=== PATIENT | female | born 1995 | race Two or more races ===

== ENCOUNTER 2022-07-12 16:13 | Inpatient (IN) | payer MEDICAID ==
[~2022-07-12] VITALS: Ht 157.5 cm; Wt 60.8 kg
[2022-07-12 17:14] LABS: BASOPHILS % (AUTO) 0.6 % (0.0-2.0); EOSINOPHILS % (AUTO) 0.3 % (1.0-6.0); HEMATOCRIT 37.3 % (36-46); HEMOGLOBIN 12.6 g/dL (12.0-16.0); LYMPHOCYTES # (AUTO) 1.5 K/uL (1.0-4.8); LYMPHOCYTES % (AUTO) 23.9 % (22.0-44.0); MEAN CORPUSCULAR HEMOGLOBIN 30.1 pg (26.0-34.0); MEAN CORPUSCULAR HGB CONC 33.8 G/dL (31.0-37.0); MEAN CORPUSCULAR VOLUME 89 fL (80-100); MONOCYTES # (AUTO) 0.4 K/uL (0.1-1.0); MONOCYTES % (AUTO) 6.5 % (2.0-9.0); NEUTROPHILS # (AUTO) 4.4 K/uL (1.8-7.7); NEUTROPHILS % (AUTO) 68.7 % (40.0-70.0); PLATELET COUNT (AUTO) 505 K/uL (150-450); RED BLOOD CELL COUNT(AUTO) 4.19 MIL/uL (4.00-5.20); RED CELL DISTRIBUTION WIDTH 16.6 % (11.5-14.5)
[2022-07-12 17:32] LABS: ALANINE AMINOTRANSFERASE 39 U/L (12-78); ALBUMIN 3.6 g/dL (3.4-5.0); ALKALINE PHOSPHATASE 78 U/L (46-116); ANION GAP 14 mmol/L (8-16); ASPARTATE AMINOTRANSFERASE 60 U/L (15-37); BILIRUBIN,TOTAL 0.4 mg/dL (0.1-1.0); CARBON DIOXIDE 24 mmol/L (22-29); CHLORIDE 104 mmol/L (98-107); CREATININE 0.65 mg/dL (0.60-1.30); GLOMERULAR FILTR. RATE CALC > 60 mL/min (>60); GLUCOSE,RANDOM 100 mg/dL (70-110); HCG,QUANTITATIVE < 1 mIU/mL (0-6); POTASSIUM 3.2 mmol/L (3.5-5.1); SODIUM SERUM 142 mmol/L (136-145); TOTAL PROTEIN, SERUM 7.8 g/dL (6.4-8.2); UREA NITROGEN, BLOOD 6 mg/dL (7-18)
[2022-07-12 18:05] LABS: COVID AG,FIA SOURCE NASOPHARYNGEAL
[2022-07-12] MEDS ORDERED: PERTUSS(ACELL),DIPH,TET VAC/PF 0.5 ML SYRINGE IM. ONE (19:30)
[2022-07-12] MEDS ORDERED: POTASSIUM CHLORIDE 20 MEQ ER TABLET PO ONE (21:45)
[2022-07-12] MEDS ORDERED: LORazepam 1 MG TABLET PO ONE (22:00)
[2022-07-13 00:25] LABS: APPEARANCE,URINE HAZY (CLEAR); BILIRUBIN,URINE NEGATIVE (NEGATIVE); GLUCOSE, URINE (UA) TRACE mg/dL (NEGATIVE); KETONES,URINE NEGATIVE (NEGATIVE); LEUKOCYTE ESTERASE ,URINE NEGATIVE (NEGATIVE); NITRATE,URINE NEGATIVE (NEGATIVE); OCCULT BLOOD,URINE LARGE (NEGATIVE); PH,URINE 5.5 (5.0-8.0); PROTEIN,URINE 30-70 mg/dL (NEGATIVE); SPECIFIC GRAVITIY, URINE 1.027 (1.003-1.030); UROBILINOGEN,URINE <=1.0 mg/dL (<=1.0)
[2022-07-13 00:32] LABS: AMPHET/METH SCREEN,URINE NEGATIVE (NEGATIVE); BARBITURATE SCREEN, URINE NEGATIVE (NEGATIVE); BENZODIAZEPINES SCREEN,URINE NEGATIVE (NEGATIVE); CANNABINOID SCREEN,URINE POSITIVE (NEGATIVE); COCAINE SCREEN,URINE NEGATIVE (NEGATIVE); METHADONE SCREEN, URINE NEGATIVE (NEGATIVE); OPIATE SCREEN,URINE NEGATIVE (NEGATIVE)
[2022-07-13 00:36] LABS: BACTERIA,URINE Few /HPF (None Seen); SQUAMOUS EPITHELIAL CELL,UR Moderate /LPF (None Seen); WBC,URINE 0-2 /HPF (0-5)
[2022-07-13 00:48] LABS: PHENCYCLIDINE SCREEN,URINE NEGATIVE (NEGATIVE)
[2022-07-13] MEDS ORDERED: HALOPERIDOL 5 MG TABLET PO PRN (01:30)
[2022-07-13 10:51] VITALS: BP 136/98
[2022-07-13] MEDS: LORazepam 2 MG TABLET PO PRN (12:00)
[2022-07-13] MEDS ORDERED: GuaiFENesin/D-METHORPHAN [SUGAR-FREE] 200-20MG/10 ML SYRUP UDCUP PO PRN (16:15)
[2022-07-13] MEDS ORDERED: IBUPROFEN 400 MG TABLET PO PRN (16:15)
[2022-07-13] MEDS ORDERED: NICOTINE 14 MG/24 HOUR PATCH TD PRN (16:15)
[2022-07-13] MEDS ORDERED: MAGNESIUM HYDROXIDE SUSPENSION 30 ML UDCUP PO PRN (16:15)
[2022-07-13] MEDS ORDERED: DOCUSATE SODIUM 100 MG CAPSULE PO PRN (16:15)
[2022-07-13] MEDS ORDERED: ONDANSETRON HCL 4 MG TABLET PO PRN (16:15)
[2022-07-13] MEDS ORDERED: MAG HYDROX/AL HYDROX/SIMETH ES 30 ML SUSPENSION UDCUP PO PRN (16:15)
[2022-07-13] MEDS ORDERED: ALBUTEROL SULFATE HFA 90 MCG/PUFF 8 GM INHALER IH PRN (16:15)
[2022-07-13] MEDS ORDERED: PETROLATUM,WHITE 28 GM JELLY TP PRN (16:15)
[2022-07-13] MEDS ORDERED: LOPERAMIDE HCL 2 MG CAPSULE PO PRN (16:15)
[2022-07-13] MEDS ORDERED: ACETAMINOPHEN 325 MG TABLET PO PRN (16:15)
[2022-07-13] MEDS ORDERED: CloNIDine HCL 0.1 MG TABLET PO PRN (16:15)
[2022-07-13 20:25] VITALS: BP 138/89
[2022-07-13] MEDS: ZOLPIDEM TARTRATE 10 MG TABLET PO PRN (20:31)
[2022-07-14] MEDS: LORazepam 2 MG TABLET PO PRN ×3 (08:38→16:31)
[2022-07-14 08:39] VITALS: BP 137/99
[2022-07-14] MEDS ORDERED: HydrOXYzine PAMOATE 25 MG CAPSULE PO PRN (10:00)
[2022-07-14] MEDS ORDERED: CYANOCOBALAMIN 1,000 MCG/ML VIAL IM ONE (10:00)
[2022-07-14] MEDS: THIAMINE 100 MG TABLET PO SCH ×2 (10:20→16:30)
[2022-07-14] MEDS: SERTRALINE HCL 50 MG TABLET PO SCH (10:20)
[2022-07-14] MEDS: FOLIC ACID 1 MG TABLET PO SCH (10:20)
[2022-07-14] MEDS: MULTIVITAMINS WITH MINERALS, THERAPEUTIC TABLET PO SCH (10:21)
[2022-07-14 11:16] VITALS: BP 112/62
[2022-07-14 12:55] VITALS: BP 132/92
[2022-07-14] MEDS: ZOLPIDEM TARTRATE 10 MG TABLET PO PRN (20:32)
[2022-07-14 20:40] VITALS: BP 144/93
[2022-07-14 21:00] VITALS: BP 144/93
[2022-07-15 04:29] VITALS: BP 140/91
[2022-07-15] MEDS: LORazepam 2 MG TABLET PO PRN (04:44)
[2022-07-15 05:04] VITALS: BP 140/91
[2022-07-15] MEDS ORDERED: LORazepam 2 MG TABLET PO PRN (07:00)
[2022-07-15 07:41] LABS: ANION GAP 6 mmol/L (8-16); CALCIUM, TOTAL 9.2 mg/dL (8.8-10.5); CARBON DIOXIDE 29 mmol/L (22-29); CHLORIDE 100 mmol/L (98-107); CHOLESTEROL 248 mg/dL (131-200); CREATININE 0.63 mg/dL (0.60-1.30); GLUCOSE,RANDOM 83 mg/dL (70-110); HDL CHOLESTEROL 127 mg/dL (40-60); LDL CHOL (CALC.) 107 mg/dL (0-130); POTASSIUM 3.5 mmol/L (3.5-5.1); SODIUM SERUM 135 mmol/L (136-145); THYROID STIMULATING HORMONE 1.49 uIU/mL (0.36-3.74); TRIGLYCERIDES 68 mg/dL (15-150); UREA NITROGEN, BLOOD 11 mg/dL (7-18)
[2022-07-15 07:43] LABS: GLOMERULAR FILTR. RATE CALC > 60 mL/min (>60)
[2022-07-15 08:19] VITALS: BP 137/76
[2022-07-15] MEDS: FOLIC ACID 1 MG TABLET PO SCH (08:45)
[2022-07-15] MEDS: THIAMINE 100 MG TABLET PO SCH ×2 (08:45→17:08)
[2022-07-15] MEDS: SERTRALINE HCL 50 MG TABLET PO SCH (08:45)
[2022-07-15] MEDS: LORazepam 2 MG TABLET PO SCH ×4 (08:45→20:09)
[2022-07-15] MEDS: MULTIVITAMINS WITH MINERALS, THERAPEUTIC TABLET PO SCH (08:45)
[2022-07-15 10:18] VITALS: BP 137/76
[2022-07-15 20:23] VITALS: BP 113/76
[2022-07-16] MEDS: LORazepam 2 MG TABLET PO SCH (08:02)
[2022-07-16] MEDS: MULTIVITAMINS WITH MINERALS, THERAPEUTIC TABLET PO SCH (08:02)
[2022-07-16] MEDS: FOLIC ACID 1 MG TABLET PO SCH (08:02)
[2022-07-16] MEDS: THIAMINE 100 MG TABLET PO SCH (08:02)
[2022-07-16] MEDS: SERTRALINE HCL 50 MG TABLET PO SCH (08:02)
[2022-07-16 08:31] VITALS: BP 122/84
[2022-07-16] MEDS ORDERED: SERT-439 PO (09:54)
[2022-07-16 10:13] VITALS: BP 122/84
[2022-07-17] MEDS ORDERED: LORazepam 1 MG TABLET PO PRN (07:00)
[2022-07-17] MEDS ORDERED: LORazepam 1 MG TABLET PO SCH (09:00)
[2022-07-18] MEDS ORDERED: LORazepam 1 MG TABLET PO PRN (07:00)
== END 2022-07-16 12:01 | disposition home or self-care (01) | DRG 751 ==
LOC: EMS 16:13 → B2S 07-13 09:02
PROVIDERS: ADMIT Psychiatry & Neurology Child & Adolescent Psychiatry; ATTEND Psychiatry & Neurology Child & Adolescent Psychiatry
DX: F33.2 Major depressive disorder, recurrent severe without psychotic features (principal); D75.839 Thrombocytosis, unspecified; Z20.822 Contact with and (suspected) exposure to COVID-19; E87.6 Hypokalemia; F10.10 Alcohol abuse, uncomplicated; F41.9 Anxiety disorder, unspecified; Y90.8 Blood alcohol level of 240 mg/100 ml or more; F19.10 Other psychoactive substance abuse, uncomplicated; F99 Mental disorder, not otherwise specified; Z71.41 Alcohol abuse counseling and surveillance of alcoholic; Z98.891 History of uterine scar from previous surgery
CPT/HCPCS: 80048; 80053; 80061; 81001; 84439; 84443; 84702; 85025; 90715; 99285; G0480; J3420

== ENCOUNTER 2022-07-17 19:17 | Inpatient (IN) | payer MEDICAID ==
[~2022-07-17] VITALS: Ht 160 cm; Wt 60.0 kg
[~2022-07-17 19:17] MED LIST: SERT-439 PO
[2022-07-17] MEDS ORDERED: HALOPERIDOL LACTATE 5 MG/ML VIAL IM ONE (19:45)
[2022-07-17] MEDS ORDERED: DIAZEPAM 5 MG/ML 2 ML SYRINGE IM ONE (19:45)
[2022-07-17] MEDS ORDERED: DiphenhydrAMINE HCL 50 MG/ML VIAL IM ONE (19:45)
[2022-07-17 20:28] LABS: AMPHET/METH SCREEN,URINE NEGATIVE (NEGATIVE); BARBITURATE SCREEN, URINE NEGATIVE (NEGATIVE); BENZODIAZEPINES SCREEN,URINE NEGATIVE (NEGATIVE); CANNABINOID SCREEN,URINE NEGATIVE (NEGATIVE); COCAINE SCREEN,URINE NEGATIVE (NEGATIVE); METHADONE SCREEN, URINE NEGATIVE (NEGATIVE); OPIATE SCREEN,URINE NEGATIVE (NEGATIVE); PHENCYCLIDINE SCREEN,URINE NEGATIVE (NEGATIVE)
[2022-07-17 20:40] LABS: COVID AG,FIA SOURCE NASOPHARYNGEAL
[2022-07-17 20:43] LABS: BASOPHILS % (AUTO) 0.7 % (0.0-2.0); EOSINOPHILS % (AUTO) 0.4 % (1.0-6.0); HEMATOCRIT 36.9 % (36-46); HEMOGLOBIN 12.2 g/dL (12.0-16.0); LYMPHOCYTES # (AUTO) 1.9 K/uL (1.0-4.8); LYMPHOCYTES % (AUTO) 25.2 % (22.0-44.0); MEAN CORPUSCULAR HGB CONC 32.9 G/dL (31.0-37.0); MEAN CORPUSCULAR VOLUME 91 fL (80-100); MONOCYTES # (AUTO) 0.6 K/uL (0.1-1.0); MONOCYTES % (AUTO) 7.5 % (2.0-9.0); NEUTROPHILS # (AUTO) 5.1 K/uL (1.8-7.7); NEUTROPHILS % (AUTO) 66.2 % (40.0-70.0); PLATELET COUNT (AUTO) 391 K/uL (150-450); RED BLOOD CELL COUNT(AUTO) 4.05 MIL/uL (4.00-5.20); RED CELL DISTRIBUTION WIDTH 17.5 % (11.5-14.5)
[2022-07-17 21:01] LABS: ALANINE AMINOTRANSFERASE 48 U/L (12-78); ALBUMIN 3.9 g/dL (3.4-5.0); ALKALINE PHOSPHATASE 76 U/L (46-116); ANION GAP 9 mmol/L (8-16); ASPARTATE AMINOTRANSFERASE 71 U/L (15-37); BILIRUBIN,TOTAL 0.2 mg/dL (0.1-1.0); CALCIUM, TOTAL 8.7 mg/dL (8.8-10.5); CARBON DIOXIDE 27 mmol/L (22-29); CHLORIDE 100 mmol/L (98-107); CREATININE 0.62 mg/dL (0.60-1.30); GLUCOSE,RANDOM 95 mg/dL (70-110); SODIUM SERUM 136 mmol/L (136-145); TOTAL PROTEIN, SERUM 7.8 g/dL (6.4-8.2); UREA NITROGEN, BLOOD 7 mg/dL (7-18)
[2022-07-17 21:02] LABS: GLOMERULAR FILTR. RATE CALC > 60 mL/min (>60)
[2022-07-17 21:03] LABS: POTASSIUM 2.9 mmol/L (3.5-5.1)
[2022-07-17] MEDS ORDERED: ZOLPIDEM TARTRATE 10 MG TABLET PO PRN (21:15)
[2022-07-17] MEDS ORDERED: HALOPERIDOL 5 MG TABLET PO PRN (21:15)
[2022-07-17] MEDS ORDERED: POTASSIUM CHLORIDE 20 MEQ ER TABLET PO ONE (21:15)
[2022-07-17 21:19] LABS: APPEARANCE,URINE CLEAR (CLEAR); BILIRUBIN,URINE NEGATIVE (NEGATIVE); GLUCOSE, URINE (UA) NEGATIVE (NEGATIVE); KETONES,URINE NEGATIVE (NEGATIVE); LEUKOCYTE ESTERASE ,URINE NEGATIVE (NEGATIVE); NITRATE,URINE NEGATIVE (NEGATIVE); OCCULT BLOOD,URINE NEGATIVE (NEGATIVE); PROTEIN,URINE NEGATIVE (NEGATIVE); SPECIFIC GRAVITIY, URINE 1.006 (1.003-1.030); UROBILINOGEN,URINE <=1.0 mg/dL (<=1.0)
[2022-07-18] MEDS: LORazepam 2 MG TABLET PO PRN ×2 (12:14→20:33)
[2022-07-18 16:24] VITALS: BP 116/84
[2022-07-18 16:27] VITALS: BP 116/84
[2022-07-18 20:22] VITALS: BP 116/73
[2022-07-18 20:33] VITALS: BP 114/65
[2022-07-19] MEDS ORDERED: NICOTINE 14 MG/24 HOUR PATCH TD PRN (06:00)
[2022-07-19] MEDS ORDERED: ALBUTEROL SULFATE HFA 90 MCG/PUFF 8 GM INHALER IH PRN (06:00)
[2022-07-19] MEDS ORDERED: MAGNESIUM HYDROXIDE SUSPENSION 30 ML UDCUP PO PRN (06:00)
[2022-07-19] MEDS ORDERED: MAG HYDROX/AL HYDROX/SIMETH ES 30 ML SUSPENSION UDCUP PO PRN (06:00)
[2022-07-19] MEDS ORDERED: IBUPROFEN 400 MG TABLET PO PRN (06:00)
[2022-07-19] MEDS ORDERED: ONDANSETRON HCL 4 MG TABLET PO PRN (06:00)
[2022-07-19] MEDS ORDERED: DOCUSATE SODIUM 100 MG CAPSULE PO PRN (06:00)
[2022-07-19] MEDS ORDERED: CloNIDine HCL 0.1 MG TABLET PO PRN (06:00)
[2022-07-19] MEDS ORDERED: PETROLATUM,WHITE 28 GM JELLY TP PRN (06:00)
[2022-07-19] MEDS ORDERED: ACETAMINOPHEN 325 MG TABLET PO PRN (06:00)
[2022-07-19] MEDS ORDERED: GuaiFENesin/D-METHORPHAN [SUGAR-FREE] 200-20MG/10 ML SYRUP UDCUP PO PRN (06:00)
[2022-07-19] MEDS ORDERED: LOPERAMIDE HCL 2 MG CAPSULE PO PRN (06:00)
[2022-07-19] MEDS: LORazepam 2 MG TABLET PO PRN ×2 (07:50→20:21)
[2022-07-19 08:03] VITALS: BP 134/96
[2022-07-19 08:27] LABS: ANION GAP 5 mmol/L (8-16); CALCIUM, TOTAL 9.7 mg/dL (8.8-10.5); CARBON DIOXIDE 31 mmol/L (22-29); CHLORIDE 101 mmol/L (98-107); CREATININE 0.71 mg/dL (0.60-1.30); GLUCOSE,RANDOM 81 mg/dL (70-110); POTASSIUM 3.8 mmol/L (3.5-5.1); SODIUM SERUM 137 mmol/L (136-145); UREA NITROGEN, BLOOD 14 mg/dL (7-18)
[2022-07-19 08:34] LABS: GLOMERULAR FILTR. RATE CALC > 60 mL/min (>60)
[2022-07-19] MEDS ORDERED: SERTRALINE HCL 50 MG TABLET PO SCH (11:45)
[2022-07-19 20:24] VITALS: BP 130/91
[2022-07-20] MEDS: LORazepam 2 MG TABLET PO PRN ×2 (07:06→14:55)
[2022-07-20 07:31] VITALS: BP 113/78
[2022-07-20 08:22] VITALS: BP 119/74
[2022-07-20] MEDS ORDERED: SERTRALINE HCL 50 MG TABLET PO SCH (09:00)
[2022-07-20] MEDS ORDERED: SERT-439 PO (13:01)
[2022-07-20 15:58] VITALS: BP 116/61
[2022-07-20 16:04] VITALS: BP 116/81
== END 2022-07-20 19:19 | disposition home or self-care (01) | DRG 751 ==
LOC: EMS 19:18 → B3A 07-18 12:54
PROVIDERS: ADMIT Psychiatry & Neurology Psychiatry; ATTEND Psychiatry & Neurology Psychiatry
DX: F33.2 Major depressive disorder, recurrent severe without psychotic features (principal); R45.851 Suicidal ideations; E87.6 Hypokalemia; Z20.822 Contact with and (suspected) exposure to COVID-19; F10.10 Alcohol abuse, uncomplicated; G47.00 Insomnia, unspecified; F99 Mental disorder, not otherwise specified; Y90.8 Blood alcohol level of 240 mg/100 ml or more; Z78.1 Physical restraint status
CPT/HCPCS: 80048; 80053; 81003; 83036; 85025; 87081; 99291; G0480; J1200; J1630

== ENCOUNTER 2022-07-25 15:44 | Inpatient (IN) | payer MEDICAID ==
[~2022-07-25] VITALS: Ht 160 cm; Wt 132.1 kg
[2022-07-25] MEDS ORDERED: LORazepam 2 MG/ML VIAL IM ONE (16:45)
[2022-07-25] MEDS ORDERED: QUEtiapine FUMARATE 100 MG TABLET PO PRN (17:30)
[2022-07-25] MEDS ORDERED: ZOLPIDEM TARTRATE 10 MG TABLET PO PRN (17:30)
[2022-07-25 17:34] LABS: BASOPHILS % (AUTO) 0.4 % (0.0-2.0); EOSINOPHILS % (AUTO) 1.6 % (1.0-6.0); HEMATOCRIT 38.4 % (36-46); HEMOGLOBIN 12.5 g/dL (12.0-16.0); LYMPHOCYTES # (AUTO) 1.8 K/uL (1.0-4.8); LYMPHOCYTES % (AUTO) 16.5 % (22.0-44.0); MEAN CORPUSCULAR HEMOGLOBIN 29.2 pg (26.0-34.0); MEAN CORPUSCULAR HGB CONC 32.5 G/dL (31.0-37.0); MEAN CORPUSCULAR VOLUME 90 fL (80-100); MONOCYTES # (AUTO) 0.4 K/uL (0.1-1.0); NEUTROPHILS # (AUTO) 8.6 K/uL (1.8-7.7); NEUTROPHILS % (AUTO) 77.5 % (40.0-70.0); PLATELET COUNT (AUTO) 343 K/uL (150-450); RED BLOOD CELL COUNT(AUTO) 4.27 MIL/uL (4.00-5.20); RED CELL DISTRIBUTION WIDTH 17.1 % (11.5-14.5)
[2022-07-25 17:44] LABS: ANION GAP 14 mmol/L (8-16); CALCIUM, TOTAL 8.5 mg/dL (8.8-10.5); CARBON DIOXIDE 25 mmol/L (22-29); CHLORIDE 105 mmol/L (98-107); CREATININE 0.77 mg/dL (0.60-1.30); GLOMERULAR FILTR. RATE CALC > 60 mL/min (>60); GLUCOSE,RANDOM 99 mg/dL (70-110); SODIUM SERUM 144 mmol/L (136-145); UREA NITROGEN, BLOOD 12 mg/dL (7-18)
[2022-07-25 17:50] LABS: ALANINE AMINOTRANSFERASE 99 U/L (12-78); ALBUMIN 3.7 g/dL (3.4-5.0); ALKALINE PHOSPHATASE 84 U/L (46-116); ASPARTATE AMINOTRANSFERASE 120 U/L (15-37); BILIRUBIN,TOTAL 0.2 mg/dL (0.1-1.0); TOTAL PROTEIN, SERUM 7.6 g/dL (6.4-8.2)
[2022-07-25] MEDS ORDERED: POTASSIUM CHLORIDE 10% 40 MEQ/30 ML LIQUID UDCUP PO ONE (18:15)
[2022-07-25 19:08] LABS: COVID AG,FIA SOURCE NASOPHARYNGEAL
[2022-07-26] VITALS (12 sets, daily range): BP systolic 115–141; BP diastolic 72–93
[2022-07-26] MEDS: LORazepam 2 MG TABLET PO PRN ×3 (00:04→20:35)
[2022-07-26] MEDS ORDERED: ACETAMINOPHEN 325 MG TABLET PO PRN ×2 (04:00→06:45)
[2022-07-26] MEDS ORDERED: ALBUTEROL SULFATE HFA 90 MCG/PUFF 8 GM INHALER IH PRN (06:45)
[2022-07-26] MEDS ORDERED: MAG HYDROX/AL HYDROX/SIMETH ES 30 ML SUSPENSION UDCUP PO PRN (06:45)
[2022-07-26] MEDS ORDERED: CloNIDine HCL 0.1 MG TABLET PO PRN (06:45)
[2022-07-26] MEDS ORDERED: MAGNESIUM HYDROXIDE SUSPENSION 30 ML UDCUP PO PRN (06:45)
[2022-07-26] MEDS ORDERED: GuaiFENesin/D-METHORPHAN [SUGAR-FREE] 200-20MG/10 ML SYRUP UDCUP PO PRN (06:45)
[2022-07-26] MEDS ORDERED: DOCUSATE SODIUM 100 MG CAPSULE PO PRN (06:45)
[2022-07-26] MEDS ORDERED: LOPERAMIDE HCL 2 MG CAPSULE PO PRN (06:45)
[2022-07-26] MEDS ORDERED: NICOTINE 14 MG/24 HOUR PATCH TD PRN (06:45)
[2022-07-26] MEDS ORDERED: PETROLATUM,WHITE 28 GM JELLY TP PRN (06:45)
[2022-07-26] MEDS ORDERED: IBUPROFEN 400 MG TABLET PO PRN (06:45)
[2022-07-26] MEDS: ONDANSETRON HCL 4 MG TABLET PO PRN (07:13)
[2022-07-26] MEDS: SERTRALINE HCL 50 MG TABLET PO SCH (18:08)
[2022-07-27] MEDS: ONDANSETRON HCL 4 MG TABLET PO PRN (06:25)
[2022-07-27 06:30] VITALS: BP 164/113
[2022-07-27] MEDS: LORazepam 2 MG TABLET PO PRN (07:10)
[2022-07-27 07:14] VITALS: BP 136/95
[2022-07-27] MEDS: SERTRALINE HCL 50 MG TABLET PO SCH ×2 (08:12→16:03)
[2022-07-27 08:22] VITALS: BP 119/76
[2022-07-27 20:34] VITALS: BP 123/75
[2022-07-28 08:30] VITALS: BP 128/85
[2022-07-28] MEDS: SERTRALINE HCL 50 MG TABLET PO SCH (09:06)
[2022-07-28] MEDS ORDERED: SERT-439 PO (11:59)
[2022-07-29 07:17] LABS: BASOPHILS % (AUTO) 0.3 % (0.0-2.0); EOSINOPHILS % (AUTO) 1.9 % (1.0-6.0); HEMATOCRIT 35.3 % (36-46); HEMOGLOBIN 11.6 g/dL (12.0-16.0); LYMPHOCYTES # (AUTO) 2.6 K/uL (1.0-4.8); LYMPHOCYTES % (AUTO) 37.3 % (22.0-44.0); MEAN CORPUSCULAR HEMOGLOBIN 29.7 pg (26.0-34.0); MEAN CORPUSCULAR HGB CONC 32.9 G/dL (31.0-37.0); MEAN CORPUSCULAR VOLUME 90 fL (80-100); MONOCYTES # (AUTO) 0.5 K/uL (0.1-1.0); MONOCYTES % (AUTO) 7.7 % (2.0-9.0); NEUTROPHILS # (AUTO) 3.7 K/uL (1.8-7.7); NEUTROPHILS % (AUTO) 52.8 % (40.0-70.0); PLATELET COUNT (AUTO) 299 K/uL (150-450); RED BLOOD CELL COUNT(AUTO) 3.92 MIL/uL (4.00-5.20); RED CELL DISTRIBUTION WIDTH 16.9 % (11.5-14.5)
== END 2022-07-28 14:10 | disposition home or self-care (01) | DRG 754 ==
LOC: EMS 15:46 → B3A 21:17
PROVIDERS: ADMIT Psychiatry & Neurology Child & Adolescent Psychiatry; ATTEND Psychiatry & Neurology Child & Adolescent Psychiatry
DX: F32.9 Major depressive disorder, single episode, unspecified (principal); D72.829 Elevated white blood cell count, unspecified; F10.129 Alcohol abuse with intoxication, unspecified; E87.6 Hypokalemia; F32.A Depression, unspecified; Y90.9 Presence of alcohol in blood, level not specified; Z20.822 Contact with and (suspected) exposure to COVID-19; F41.9 Anxiety disorder, unspecified; R03.0 Elevated blood-pressure reading, without diagnosis of hypertension; Z78.1 Physical restraint status; Z98.891 History of uterine scar from previous surgery
CPT/HCPCS: 80053; 84132; 84703; 85025; 87081; 99285; 99291; G0480; J2060; Q0162

== ENCOUNTER 2022-07-28 23:15 | Inpatient (IN) | payer MEDICAID ==
[~2022-07-28] VITALS: Ht 160 cm; Wt 132.1 kg
[2022-07-29] MEDS ORDERED: HALOPERIDOL 5 MG TABLET PO PRN (00:30)
[2022-07-29] MEDS ORDERED: SODIUM CHLORIDE 0.9% 1,000 ML IV ONE (00:45)
[2022-07-29] MEDS ORDERED: LORazepam 2 MG/ML VIAL IVP ONE (00:45)
[2022-07-29] MEDS ORDERED: DiphenhydrAMINE HCL 50 MG/ML VIAL IVP ONE (00:45)
[2022-07-29 00:46] LABS: BASOPHILS % (AUTO) 0.5 % (0.0-2.0); EOSINOPHILS % (AUTO) 0.8 % (1.0-6.0); HEMATOCRIT 38.4 % (36-46); HEMOGLOBIN 12.8 g/dL (12.0-16.0); LYMPHOCYTES # (AUTO) 1.6 K/uL (1.0-4.8); LYMPHOCYTES % (AUTO) 22.3 % (22.0-44.0); MEAN CORPUSCULAR HEMOGLOBIN 29.5 pg (26.0-34.0); MEAN CORPUSCULAR HGB CONC 33.2 G/dL (31.0-37.0); MEAN CORPUSCULAR VOLUME 89 fL (80-100); MONOCYTES # (AUTO) 0.5 K/uL (0.1-1.0); MONOCYTES % (AUTO) 6.5 % (2.0-9.0); NEUTROPHILS # (AUTO) 5.1 K/uL (1.8-7.7); NEUTROPHILS % (AUTO) 69.9 % (40.0-70.0); PLATELET COUNT (AUTO) 317 K/uL (150-450); RED BLOOD CELL COUNT(AUTO) 4.33 MIL/uL (4.00-5.20); RED CELL DISTRIBUTION WIDTH 16.6 % (11.5-14.5)
[2022-07-29 00:50] LABS: COVID AG,FIA SOURCE NASOPHARYNGEAL
[2022-07-29 00:55] LABS: ANION GAP 15 mmol/L (8-16); CALCIUM, TOTAL 8.8 mg/dL (8.8-10.5); CARBON DIOXIDE 26 mmol/L (22-29); CHLORIDE 100 mmol/L (98-107); CREATININE 0.71 mg/dL (0.60-1.30); GLUCOSE,RANDOM 96 mg/dL (70-110); POTASSIUM 3.6 mmol/L (3.5-5.1); SODIUM SERUM 141 mmol/L (136-145); UREA NITROGEN, BLOOD 5 mg/dL (7-18)
[2022-07-29 00:57] LABS: GLOMERULAR FILTR. RATE CALC > 60 mL/min (>60)
[2022-07-29 01:09] LABS: ALANINE AMINOTRANSFERASE 57 U/L (12-78); ALBUMIN 3.9 g/dL (3.4-5.0); ALKALINE PHOSPHATASE 95 U/L (46-116); ASPARTATE AMINOTRANSFERASE 39 U/L (15-37); BILIRUBIN,TOTAL 0.2 mg/dL (0.1-1.0); HCG,QUANTITATIVE < 1 mIU/mL (0-6)
[2022-07-29 03:20] VITALS: BP 84/46
[2022-07-29 04:20] VITALS: BP 92/54
[2022-07-29 05:24] VITALS: BP 104/56
[2022-07-29 06:20] VITALS: BP 100/54
[2022-07-29 08:40] VITALS: BP 110/75
[2022-07-29] MEDS: SERTRALINE HCL 50 MG TABLET PO SCH (11:28)
[2022-07-29 23:30] VITALS: BP 122/72
[2022-07-29] MEDS: ZOLPIDEM TARTRATE 10 MG TABLET PO PRN (23:55)
[2022-07-30 04:00] VITALS: BP 115/72
[2022-07-30 04:22] VITALS: BP 115/72
[2022-07-30] MEDS: LORazepam 1 MG TABLET PO PRN ×2 (06:19→21:29)
[2022-07-30] MEDS: SERTRALINE HCL 50 MG TABLET PO SCH (08:10)
[2022-07-30 08:18] VITALS: BP 109/68
[2022-07-30 08:53] VITALS: BP 109/68
[2022-07-30 20:28] VITALS: BP 121/82
[2022-07-30 21:05] VITALS: BP 121/82
[2022-07-30] MEDS: ZOLPIDEM TARTRATE 10 MG TABLET PO PRN (21:29)
[2022-07-31] MEDS: LORazepam 1 MG TABLET PO PRN ×3 (07:08→21:16)
[2022-07-31 08:30] VITALS: BP 122/74
[2022-07-31] MEDS: SERTRALINE HCL 50 MG TABLET PO SCH (09:05)
[2022-07-31 14:21] VITALS: BP 122/74
[2022-07-31] MEDS: ZOLPIDEM TARTRATE 10 MG TABLET PO PRN (21:16)
[2022-07-31 21:33] VITALS: BP 121/72
[2022-08-01 04:32] VITALS: BP 122/82
[2022-08-01] MEDS: LORazepam 1 MG TABLET PO PRN ×2 (06:48→16:09)
[2022-08-01] MEDS: SERTRALINE HCL 50 MG TABLET PO SCH (08:06)
[2022-08-01 08:19] VITALS: BP 108/66
[2022-08-01 11:29] VITALS: BP 108/66
[2022-08-01 20:53] VITALS: BP 116/79
[2022-08-01] MEDS: ZOLPIDEM TARTRATE 10 MG TABLET PO PRN (21:00)
[2022-08-01 22:00] VITALS: BP 116/79
[2022-08-02] MEDS: LORazepam 1 MG TABLET PO PRN (01:41)
[2022-08-02] MEDS: SERTRALINE HCL 50 MG TABLET PO SCH (08:09)
[2022-08-02 08:27] VITALS: BP 120/78
[2022-08-02 08:59] VITALS: BP 120/78
[2022-08-02] MEDS ORDERED: DISULFIRAM 250 MG TABLET PO ONE (12:00)
[2022-08-02] MEDS ORDERED: DISU250T8 PO (13:16)
[2022-08-02] MEDS ORDERED: SERT-439 PO (13:16)
[2022-08-03] MEDS ORDERED: DISULFIRAM 250 MG TABLET PO SCH (09:00)
== END 2022-08-02 15:51 | disposition home or self-care (01) | DRG 751 ==
LOC: EMS 23:16 → B3A 07-29 03:00 → EMS 07-29 03:25
PROVIDERS: ADMIT Psychiatry & Neurology Child & Adolescent Psychiatry; ATTEND Psychiatry & Neurology Child & Adolescent Psychiatry
DX: F33.2 Major depressive disorder, recurrent severe without psychotic features (principal); Z68.43 Body mass index [BMI] 50.0-59.9, adult; E66.01 Morbid (severe) obesity due to excess calories; Z20.822 Contact with and (suspected) exposure to COVID-19; F41.9 Anxiety disorder, unspecified; F10.129 Alcohol abuse with intoxication, unspecified; Y90.9 Presence of alcohol in blood, level not specified; Z98.891 History of uterine scar from previous surgery
CPT/HCPCS: 80053; 84702; 85025; 87081; 99285; G0480; J1200; J2060